=== PATIENT | male | born 1975 | race Caucasian/White ===

== ENCOUNTER 2019-04-13 14:49 | Inpatient (IN) ==
[2019-04-13] MEDS ORDERED: Isovue-370 500 ML BOTTLE IVP ONE (15:29)
--- NOTE | 2019-04-13 15:32 | Emergency Department Note ---
Disposition Clinical Impression: Abscess Cellulitis Qualifiers: Site of cellulitis: extremity Site of cellulitis of extremity: lower extremity Laterality: right Qualified Code(s): L03.115 - Cellulitis of right lower limb Disposition: Admitted As Inpatient Condition: Fair Time of Disposition: 00:35 General Adult HPI - General Chief complaint: ED Extremity Problem,Nontraumatic Stated complaint: Left upper thigh Abscess/ cellulitis Time Seen by Provider: 04/13/19 15:13 Source: patient Limitations: no limitations - History of Present Illness Pain Scale: 10 - Related Data Home Medications Medication Instructions Recorded Confirmed Ascorbic Acid [C-1000] 1,000 mg PO DAILY 04/13/19 04/13/19 Glucosamine/D3/Boswellia Shannon 2 each PO DAILY 04/13/19 04/13/19 [Osteo Bi-Flex Tablet] Losartan/Hydrochlorothiazide 1 each PO DAILY 04/13/19 04/13/19 [Losartan-Hctz 50-12.5 mg Tab] Meloxicam [Mobic] 15 mg PO DAILY PRN 04/13/19 04/13/19 Multivit-Min/Folic/Vit K/Lycop 1 each PO DAILY 04/13/19 04/13/19 [Men's Multivitamin Tablet] Allergies Allergy/AdvReac Type Severity Reaction Status Date / Time lisinopril AdvReac Cough Verified 04/13/19 15:37 Past Medical History - Past Medical History Medical history: Reports: arthritis, hypertension Psychiatric history: Reports: no psych history - Social History Smoking Status: Never smoker Alcohol use: Reports: occasionally Drug use: Reports: none Physical Exam - General Limitations: no limitations General appearance: alert, in no apparent distress Course Vital Signs Temperature 99.0 F 04/13/19 15:04 Pulse Rate 105 04/13/19 15:04 Respiratory Rate 20 04/13/19 15:04 Blood Pressure 149/75 04/13/19 15:04 O2 Sat by Pulse Oximetry 96 04/13/19 15:04 Temperature 99.1 F 04/13/19 23:01 Pulse Rate 95 04/13/19 23:01 Respiratory Rate 16 04/13/19 23:01 Blood Pressure 133/76 04/13/19 23:01 O2 Sat by Pulse Oximetry 95 04/13/19 23:01 Oxygen Delivery Oxygen Delivery Room Air Medical Decision Making - Lab Data Result diagrams: 04/13/19 15:51 04/13/19 15:51 Lab Results 04/13/19 04/13/19 04/13/19 Range/Units 15:51 15:51 15:51 WBC 9.1 (4.3-11.1) K/mcL RBC 4.37 (4.19-5.50) M/mcL Hgb 12.5 L (12.9-16.9) g/dL Hct 38.8 (37.5-50.1) % MCV 88.8 (83.0-100.0) fL MCH 28.6 (28.0-33.3) pg MCHC 32.2 (31.6-35.5) g/dL RDW 13.0 (11.5-14.5) % Plt Count 333 (140-400) K/mcL MPV 9.8 (9.4-12.4) fL Immature Gran % 0.5 (0-4) % Seg Neutrophils % 77.4 % Lymphocytes % 10.5 % Monocytes % 8.9 % Eosinophils % 2.3 % Basophils % 0.4 % Neutrophils # 7.1 (1.6-8.9) K/mcL Lymphocytes # 1.0 (0.6-4.6) K/mcL Monocytes # 0.8 (0.0-1.3) K/mcL Eosinophils # 0.2 (0.0-0.6) K/mcL Basophils # 0.0 (0.0-0.2) K/mcL PT 13.8 H (9.4-12.1) Seconds INR 1.2 APTT 29.3 (26.0-36.0) Seconds Sodium 136 (136-145) mEq/L Potassium 3.8 (3.5-5.1) mEq/L Chloride 101 (98-107) mEq/L Carbon Dioxide 26 (23-29) mEq/L BUN 14 (6-20) mg/dL Creatinine 0.58 L (0.70-1.30) mg/dL Est GFR ( Amer) > 60 (> 60) Est GFR (Non-Af Amer) > 60 (> 60) BUN/Creatinine Ratio 24 (6-26) Glucose 93 (70-105) mg/dL Calculated Osmolality 282 (280-300) Calcium 9.4 (8.6-10.3) mg/dL Attestation Statement - Attestation Attestation: I reviewed the residents documentation and agree with the residents assessment and plan of care. I have personally had face to face time with the patient. (Brief History, Brief Exam, and MDM) I personally supervised and was present for the fischer/critical portions of the following procedures completed by the resident: (add procedures performed here). [id number] time provided Patient has right knee swelling with surrounding cellulitis. There is granulomatous tissue on exam. Initial injury occurred 2 years ago as a work r elated issue. CT with IV contrast of his right lower extremity ordered to evaluate for abscess
--- NOTE | 2019-04-13 15:33 | Emergency Department Note ---
Disposition Clinical Impression: Abscess Cellulitis Qualifiers: Site of cellulitis: extremity Site of cellulitis of extremity: lower extremity Laterality: right Qualified Code(s): L03.115 - Cellulitis of right lower limb Disposition: Admitted As Inpatient Condition: Fair Forms: ED Satisfaction Letter Time of Disposition: 18:33 General Adult HPI - General Chief complaint: ED Extremity Problem,Nontraumatic Stated complaint: Left upper thigh Abscess/ cellulitis Time Seen by Provider: 04/13/19 15:13 Source: patient Mode of arrival: ambulatory Limitations: no limitations Nursing Notes Reviewed: Yes Vital Signs Reviewed: Yes - History of Present Illness HPI Narrative: Patient is a 44-year-old male that presents emergency department due to concern for swelling fluctuant mass on the right lateral aspect of his right lower extremity. Patient states that he had an initial injury approximately 2 years ago in May 2017. Patient states is been followed with occupational health for the injury. Patient states he has not had any new injuries to the leg since that time. Patient states that on April 06. Again had increased swelling, erythema and pain to the right thigh. Patient states that he has also had increased sloughing of skin overlying the fluctuant area. Patient states it is become extremely tender superior to the fluctuant mass. Patient states that he has not had any fevers, nausea, vomiting or diarrhea. Patient states he otherwise feels fine. Patient states that he has been able to work up until April 06 however now with having to stand repetitively as job is become or painful and difficult to do his job. Pain Scale: 10 - Related Data Allergies Allergy/AdvReac Type Severity Reaction Status Date / Time lisinopril AdvReac Cough Verified 04/13/19 15:37 All systems ED: reviewed and negative except as stated. Constitutional: Denies: fever Cardiovascular: Denies: chest pain Respiratory: Denies: dyspnea Gastrointestinal: Denies: abdominal pain Musculoskeletal: Reports: other (Right thigh pain, erythema, and swelling) Neurological: Denies: weakness, numbness, paresthesias Past Medical History - Past Medical History Medical history: Reports: arthritis, hypertension Psychiatric history: Reports: no psych history - Social History Smoking Status: Never smoker Alcohol use: Reports: occasionally Drug use: Reports: none Physical Exam - General Limitations: no limitations General appearance: alert, in no apparent distress - Head Head exam: atraumatic, normocephalic - Eye Eye exam: Present: normal appearance, EOMI - Neck Neck exam: Present: normal inspection, full ROM, trachea midline - Respiratory Respiratory exam: Present: normal lung sounds bilaterally. Absent: respiratory distress, wheezes - Cardiovascular Cardiovascular exam: Present: regular rate, normal rhythm, normal heart sounds, +S1, +S2 - Abdominal Exam Abdominal exam: Present: soft, Non-Tender, normal bowel sounds - Extremities Exam Extremities exam: Present: other (Patient has approximately a 10 x 10 fluctuant area on his lateral aspect of his right thigh. There is surrounding induration and erythema.) - Neurological Exam Neurological exam: Present: alert, oriented X3 - Psychiatric Psychiatric exam: Present: normal affect, normal mood - Skin Skin exam: Present: erythema, other (Skin is sloughing off the fluctuant mass on the anterior lateral right thigh.) Course Vital Signs Temperature 99.0 F 04/13/19 15:04 Pulse Rate 105 04/13/19 15:04 Respiratory Rate 20 04/13/19 15:04 Blood Pressure 149/75 04/13/19 15:04 O2 Sat by Pulse Oximetry 96 04/13/19 15:04 Temperature 99.0 F 04/13/19 15:04 Pulse Rate 105 04/13/19 15:04 Respiratory Rate 20 04/13/19 15:04 Blood Pressure 149/75 04/13/19 15:04 O2 Sat by Pulse Oximetry 96 04/13/19 15:04 Oxygen Delivery Oxygen Delivery Room Air Medical Decision Making - [facility] Narrative Medical decision making narrative: Due the patient is not emergency Department with reports of increased swelling and fluctuance to the right thigh we will obtain basic laboratory testing as well as a CT scan with IV contrast of the patient's right lower extremity. Patient's laboratory testing is relatively unremarkable. Patient does have signs of an abscess on CT scan. There is a fluid collection of 13.1 x 9.9 x 13.1 cm. Patient is otherwise nontoxic appearing, afebrile and states he has no other symptoms at this time. I did call and speak with the on-call acute-care surgeon Dr. Richardson who agreed to see the patient in consult. He did ask that a ultrasound be ordered. This was done and the order was placed [facility]. Patient was started on clindamycin here in the emergency department. I called and spoke the admitting hospitalist Dr. Rivas and he is accepted the patient to their service. Patient be admitted to the hospital at this time for further evaluation and management. - Medical Records Medical records reviewed: Yes I reviewed the patient's medical records. - Lab Data Lab results reviewed: Yes I reviewed the patient's lab results. Result diagrams: 04/13/19 15:51 04/13/19 15:51 Lab Results 04/13/19 04/13/19 04/13/19 Range/Units 15:51 15:51 15:51 WBC 9.1 (4.3-11.1) K/mcL RBC 4.37 (4.19-5.50) M/mcL Hgb 12.5 L (12.9-16.9) g/dL Hct 38.8 (37.5-50.1) % MCV 88.8 (83.0-100.0) fL MCH 28.6 (28.0-33.3) pg MCHC 32.2 (31.6-35.5) g/dL RDW 13.0 (11.5-14.5) % Plt Count 333 (140-400) K/mcL MPV 9.8 (9.4-12.4) fL Immature Gran % 0.5 (0-4) % Seg Neutrophils % 77.4 % Lymphocytes % 10.5 % Monocytes % 8.9 % Eosinophils % 2.3 % Basophils % 0.4 % Neutrophils # 7.1 (1.6-8.9) K/mcL Lymphocytes # 1.0 (0.6-4.6) K/mcL Monocytes # 0.8 (0.0-1.3) K/mcL Eosinophils # 0.2 (0.0-0.6) K/mcL Basophils # 0.0 (0.0-0.2) K/mcL PT 13.8 H (9.4-12.1) Seconds INR 1.2 APTT 29.3 (26.0-36.0) Seconds Sodium 136 (136-145) mEq/L Potassium 3.8 (3.5-5.1) mEq/L Chloride 101 (98-107) mEq/L Carbon Dioxide 26 (23-29) mEq/L BUN 14 (6-20) mg/dL Creatinine 0.58 L (0.70-1.30) mg/dL Est GFR ( Amer) > 60 (> 60) Est GFR (Non-Af Amer) > 60 (> 60) BUN/Creatinine Ratio 24 (6-26) Glucose 93 (70-105) mg/dL Calculated Osmolality 282 (280-300) Calcium 9.4 (8.6-10.3) mg/dL - Radiology Data Radiology results reviewed: Yes I reviewed the patient's radiology results. Lower Extremity CT 04/13/19 15:29 IMPRESSION: Thick-walled complex multiloculated collection in the anterior subcutaneous fat of the right thigh measuring 13.1 x 9.9 x 13.1 cm in size. Differential includes abscess, superinfected hematoma or hematoma from prior trauma. Mild infiltration of the subcutaneous fat and mild skin thickening of the right thigh may represent cellulitis in the proper clinical setting. No deep soft tissue infection. No acute bone or joint abnormality. Moderate to severe tricompartmental osteoarthritis of the right knee. D/ / 04/13/2019 18:02:53 Rich Sylvester MD / paz Interpreting Provider: Rich Sylvester MD
[2019-04-13 16:20] LABS: Basophils % 0.4 %; Eosinophils # 0.2 K/mcL (0.0-0.6); Eosinophils % 2.3 %; Hematocrit 38.8 % (37.5-50.1); Hemoglobin 12.5 g/dL (12.9-16.9); Immature Granulocytes % 0.5 % (0-4); Lymphocytes % 10.5 %; Mean Corpuscular HGB Conc 32.2 g/dL (31.6-35.5); Mean Corpuscular Hemoglobin 28.6 pg (28.0-33.3); Mean Corpuscular Volume 88.8 fL (83.0-100.0); Mean Platelet Volume 9.8 fL (9.4-12.4); Monocytes # 0.8 K/mcL (0.0-1.3); Monocytes % 8.9 %; Neutrophils # 7.1 K/mcL (1.6-8.9); Platelet Count 333 K/mcL (140-400); Red Blood Count 4.37 M/mcL (4.19-5.50); Segmented Neutrophils % 77.4 %; White Blood Count 9.1 K/mcL (4.3-11.1)
[2019-04-13 16:31] LABS: INR 1.2; Prothrombin Time 13.8 Seconds (9.4-12.1)
[2019-04-13 16:32] LABS: Activated Partial Thrombo Time 29.3 Seconds (26.0-36.0)
[2019-04-13 16:39] LABS: BUN/Creatinine Ratio 24 (6-26); Blood Urea Nitrogen 14 mg/dL (6-20); Calcium 9.4 mg/dL (8.6-10.3); Carbon Dioxide 26 mEq/L (23-29); Chloride 101 mEq/L (98-107); Glucose 93 mg/dL (70-105); Osmolality,Calculated 282 (280-300); Potassium 3.8 mEq/L (3.5-5.1); Sodium 136 mEq/L (136-145); eGFR For African Americans > 60 (> 60); eGFR For Non-African Americans > 60 (> 60)
[2019-04-13] MEDS ORDERED: Clindamycin 600 MG/50 ML 600 MG/50 ML IV.SOLN IVPB ONE (18:05)
--- NOTE | 2019-04-13 19:41 | Acute Care Surgery H&P ---
Date of Encounter: 04/13/19 Time of Encounter: 19:00 Assessment and Plan (1) Morbid obesity with BMI of 50.0-59.9, adult Current Visit: Yes Status: Acute The assessment and plan as outlined above was discussed with the patient and/or family members who expressed understanding and agreement. All questions were answered. The patient has profound morbid obesity which may complicate his general anesthetic and airway management. The profound morbid obesity is also resulted in bilateral lower extremity lymphedema and bilateral lower extremity chronic ve nous hypertension. (2) Lymphocele Current Visit: Yes Status: Acute The assessment and plan as outlined above was discussed with the patient and/or family members who expressed understanding and agreement. All questions were answered. The lymphocele on the left lower extremity has become secondarily infected and associated with cellulitis. The patient will be treated overnight with IV antibiotics directed at skin clover followed by incision and drainage of the lymphocele. I discussed risks and benefits with him and his care will be discussed on acute care surgery rounds tomorrow morning History of Present Illness Chief complaint: Right thigh abscess HPI: Mr. Maloney is a 44 year old male Who sustained a traumatic injury 2 years ago. Since that time he has had a small swelling on the anterior aspect of his right thigh. This has progressively enlarged. He has had this drained on one occasion. The mass now measures 14 cm x 10 cm and has resulted in the overlying skin starting to necrosis. The skin is also demonstrates transudate lymphatic fluid. The patient has surrounding erythema and the mass is becoming exquisitely painful. The patient underwent CAT scan evaluation in the emergency department. I personally reviewed the CT. The infected lymphocele occupies the subcutaneous tissue and does not go below the muscular fascia of the thigh. It is unclear if there is a discrete vascular pedicle to the wall of the chronic lymphocele. The patient's condition is complicated by profound morbid obesity with body mass index of 50 and port appears to be undiagnosed bilateral lower extremity lymphedema as well as chronic venous insufficiency with hemosiderin deposition and dermatosclerosis without ulceration Past Med Surg Social Fam HX - Past Medical History Medical history: arthritis, hypertension Psychiatric history: no psych history - Past Surgical History Additional surgical history: dental surgery - Social History Smoking Status: Never smoker Alcohol use: occasionally Drug use: none Medications and Allergies Allergy/AdvReac Type Severity Reaction Status Date / Time lisinopril AdvReac Cough Verified 04/13/19 15:37 Review of Systems All systems PM: The remainder of the systems were reviewed and are negative General Surgery Exam Initial Vital Signs Temp Pulse Resp BP Pulse Ox 99.0 F 105 20 149/75 96 04/13/19 15:04 04/13/19 15:04 04/13/19 15:04 04/13/19 15:04 04/13/19 15:04 - General physical appearance well developed, well nourished, moderate pain, obese (Profound morbid obesity) - Neck no masses, no bruits, trachea midline, no lymphadectomy, other (Short thick neck with redundant tissue) - Respiratory normal expansion, normal respiratory effort, clear to percussion, clear to auscultation - Cardiovascular Cardiovascular exam: Present: RRR, no murmurs/rubs/gallops - Abdomen Abdomen general surgery: Present: bowel sounds present (Profound morbid obesity), soft, non tender - Integumentary Integumentary general surgery: Present: warm and dry, no abnormal pigmentation - Neurologic Present: CN 2-12 grossly intact, normal coordination, normal sensation - Psychiatric Psychiatric general surgery: Present: appropriate, oriented to person, oriented to place, oriented to time, speech is normal, memory intact - Additional Findings 15 cm soft fluctuant mass with surrounding erythema and overlying necrotic epidermis. There is surrounding erythema consistent with cellulitis Results - Labs 04/13/19 15:51 04/13/19 15:51 Abnormal lab results Hgb 12.5 g/dL (12.9-16.9) L 04/13/19 15:51 PT 13.8 Seconds (9.4-12.1) H 04/13/19 15:51 Creatinine 0.58 mg/dL (0.70-1.30) L 04/13/19 15:51 Diabetes panel 04/13/19 Range/Units 15:51 Sodium 136 (136-145) mEq/L Potassium 3.8 (3.5-5.1) mEq/L Chloride 101 (98-107) mEq/L Carbon Dioxide 26 (23-29) mEq/L BUN 14 (6-20) mg/dL Creatinine 0.58 L (0.70-1.30) mg/dL Glucose 93 (70-105) mg/dL Calcium 9.4 (8.6-10.3) mg/dL Calcium panel 04/13/19 Range/Units 15:51 Calcium 9.4 (8.6-10.3) mg/dL Pituitary panel 04/13/19 Range/Units 15:51 Sodium 136 (136-145) mEq/L Potassium 3.8 (3.5-5.1) mEq/L Chloride 101 (98-107) mEq/L Carbon Dioxide 26 (23-29) mEq/L BUN 14 (6-20) mg/dL Creatinine 0.58 L (0.70-1.30) mg/dL Glucose 93 (70-105) mg/dL Calcium 9.4 (8.6-10.3) mg/dL Adrenal panel 04/13/19 Range/Units 15:51 Sodium 136 (136-145) mEq/L Potassium 3.8 (3.5-5.1) mEq/L Chloride 101 (98-107) mEq/L Carbon Dioxide 26 (23-29) mEq/L BUN 14 (6-20) mg/dL Creatinine 0.58 L (0.70-1.30) mg/dL Glucose 93 (70-105) mg/dL Calcium 9.4 (8.6-10.3) mg/dL All other labs normal. - Imaging Additional studies: I personally reviewed the CAT scan of the extremities. The patient has a 14 cm x 10 cm complex mass in the anterior aspect of the right thigh. There is surrounding tissue edema consistent with cellulitis
[2019-04-13] MEDS: 0.9 % Sodium Chloride 1,000 ML IVC SCH (23:45)
[2019-04-14] MEDS: *HR* Heparin 5,000 UNIT/ML VIAL SQ SCH ×2 (05:00→19:55)
[2019-04-14 06:14] LABS: Hematocrit 35.6 % (37.5-50.1); Hemoglobin 11.5 g/dL (12.9-16.9); Mean Corpuscular HGB Conc 32.3 g/dL (31.6-35.5); Mean Corpuscular Hemoglobin 28.7 pg (28.0-33.3); Mean Corpuscular Volume 88.8 fL (83.0-100.0); Mean Platelet Volume 9.7 fL (9.4-12.4); Platelet Count 329 K/mcL (140-400); Red Blood Count 4.01 M/mcL (4.19-5.50); Red Cell Distribution Width 13.2 % (11.5-14.5); White Blood Count 8.9 K/mcL (4.3-11.1)
[2019-04-14 06:39] LABS: BUN/Creatinine Ratio 20 (6-26); Blood Urea Nitrogen 12 mg/dL (6-20); Calcium 9.4 mg/dL (8.6-10.3); Carbon Dioxide 26 mEq/L (23-29); Chloride 101 mEq/L (98-107); Glucose 93 mg/dL (70-105); Osmolality,Calculated 285 (280-300); Sodium 138 mEq/L (136-145); eGFR For African Americans > 60 (> 60); eGFR For Non-African Americans > 60 (> 60)
[2019-04-14] MEDS ORDERED: Ondansetron 4 MG/2 ML VIAL ONE (16:16)
[2019-04-14] MEDS ORDERED: *HR* Midazolam HCl 2 MG/2 ML VIAL ONE (16:16)
[2019-04-14] MEDS ORDERED: Dexamethasone 4 MG/ML VIAL ONE (16:16)
[2019-04-14] MEDS ORDERED: Lidocaine -MPF 2% 2 ML VIAL ONE (16:16)
[2019-04-14] MEDS ORDERED: *HR* Propofol 200 MG/20 ML VIAL IVP ONE ×2 (16:16→18:56)
[2019-04-14] MEDS ORDERED: *HR* FentaNYL (PF) 100 MCG/2 ML VIAL ONE (16:16)
[2019-04-14] MEDS ORDERED: *HR* Succinylcholine 200 MG/10 ML VIAL IVP ONE (16:18)
[2019-04-14] MEDS ORDERED: *HR* Rocuronium Bromide 50 MG/5 ML VIAL ONE (16:18)
[2019-04-14] MEDS ORDERED: Lidocaine HCL 4 ML Topical Solution (Laryng-O-Jet Kit Sterile Pak) TP ONE (16:22)
[2019-04-14] MEDS ORDERED: Propofol 500 MG/50 ML INFUS..BTL ONE (18:11)
--- NOTE | 2019-04-14 18:15 | Anesthesia Evaluation PreOp ---
Date of Encounter: 04/14/19 Time of Encounter: 18:10 - Past History Planned Operation: I & D Right Thigh Cardiac History: HTN Pulmonary History: Denies Any Significant HX, Snore Other Medical History: Denies Any Significant HX, Other (obesity BMI=51.5) Anesthesia History: No Prior Anesthetic Complications, Past Anesthesia Alcohol Use: occasionally Drug use: none Medications and Allergies Ascorbic Acid [C-1000] 1,000 mg PO DAILY 04/13/19 [History] Glucosamine/D3/Boswellia Shannon [Osteo Bi-Flex Tablet] 2 each PO DAILY 04/13/19 [History] Losartan/Hydrochlorothiazide [Losartan-Hctz 50-12.5 mg Tab] 1 each PO DAILY 04/13/19 [History] Meloxicam [Mobic] 15 mg PO DAILY PRN 04/13/19 [History] Multivit-Min/Folic/Vit K/Lycop [Men's Multivitamin Tablet] 1 each PO DAILY 04/13/19 [History] Allergy/AdvReac Type Severity Reaction Status Date / Time lisinopril AdvReac Cough Verified 04/13/19 15:37 - Meds/Allergy Pre-op Review Medications Reviewed: Yes Allergies Reviewed: Yes Beta Blockers on Current Med List: No Anesthesia Results - Labs 04/14/19 05:11 04/14/19 05:11 Anesthesia Exam Vital Signs/O2 Sat/Glucose, Most Recent Temp Pulse Resp BP Pulse Ox 99.4 F 87 16 150/85 96 04/14/19 15:22 04/14/19 15:22 04/14/19 15:22 04/14/19 15:22 04/14/19 15:22 Blood Glucose* 84 Height: 5'11''/1.8m Weight: 369 lbs/167.4 kg NPO (# of Hours): 8 Pain Scale: 5 Pain Scale Used: Numeric (1 - 10) - HEENT Pupil (Motor): EOMI Mallampati: III Teeth: Normal Oral Opening: Greater than 3 - UPPER LEATHER CUTTER LOC: Oriented UPPER LEATHER CUTTER Motor: Normal RUE, Normal LUE, Normal RLE, Normal LLE, Normal Face UPPER LEATHER CUTTER Sensory: Normal: RUE, LUE, RLE, LLE, Face - Cardiac Rhythm: Regular Murmur: None - Pulmonary Breath Sounds: bilateral Clear Respiratory Effort: Symmetrical Anesthesia Assess/Plan ASA Score: 3 Level of consciousness: Cooperative, Oriented, Tranquil Anesthetic Plan: MAC Monitoring Plan: Standard Monitors
[2019-04-14] MEDS: 0.9 % Sodium Chloride 1,000 ML IVC SCH ×2 (18:20→20:07)
[2019-04-14] MEDS ORDERED: *HR* FentaNYL (PF) 100 MCG/2 ML VIAL IVP ONE (20:17)
[2019-04-14] MEDS ORDERED: *HR* OxyCODONE Immed Rel 5 MG TABLET PO PRN (20:18)
[2019-04-15] MEDS: *HR* Heparin 5,000 UNIT/ML VIAL SQ SCH ×2 (05:21→16:27)
[2019-04-15 05:57] LABS: Hematocrit 35.9 % (37.5-50.1); Hemoglobin 11.5 g/dL (12.9-16.9); Mean Corpuscular Hemoglobin 28.9 pg (28.0-33.3); Mean Corpuscular Volume 90.2 fL (83.0-100.0); Mean Platelet Volume 9.5 fL (9.4-12.4); Platelet Count 349 K/mcL (140-400); Red Blood Count 3.98 M/mcL (4.19-5.50); Red Cell Distribution Width 12.7 % (11.5-14.5); White Blood Count 6.7 K/mcL (4.3-11.1)
[2019-04-15 06:19] LABS: BUN/Creatinine Ratio 21 (6-26); Blood Urea Nitrogen 12 mg/dL (6-20); Calcium 9.2 mg/dL (8.6-10.3); Carbon Dioxide 26 mEq/L (23-29); Chloride 103 mEq/L (98-107); Glucose 95 mg/dL (70-105); Osmolality,Calculated 286 (280-300); Sodium 138 mEq/L (136-145); eGFR For African Americans > 60 (> 60); eGFR For Non-African Americans > 60 (> 60)
[2019-04-15] MEDS: Losartan/HCTZ 50-12.5 TABLET PO SCH (09:41)
[2019-04-15] MEDS ORDERED: Lidocaine Jelly 11 ml Syringe TP STA (09:48)
--- NOTE | 2019-04-15 10:12 | Discharge Summary ---
<Joana Mason - Last Filed: 04/15/19 15:26> Orders not resulted at time of discharge: Pending orders 04/14/19 18:58 Fungal Culture [MYC] Routine 04/14/19 19:26 Surgical Pathology [PTH] Routine Date of Encounter: 04/15/19 Time of Encounter: 10:12 - Discharge Diagnosis (1) Lymphocele Priority: Primary Status: Acute (2) Morbid obesity with BMI of 50.0-59.9, adult Priority: Secondary Status: Chronic (3) Cellulitis Priority: Primary Status: Acute Qualifiers: Site of cellulitis: extremity Site of cellulitis of extremity: lower extremity Laterality: right Qualified Code(s): L03.115 - Cellulitis of right lower limb General Surgery Exam Initial Vital Signs Temp Pulse Resp BP Pulse Ox 99.0 F 105 20 149/75 96 04/13/19 15:04 04/13/19 15:04 04/13/19 15:04 04/13/19 15:04 04/13/19 15:04 - General physical appearance no distress, moderate pain, obese - ENT atraumatic, normocephalic - Neck trachea midline - Respiratory normal expansion, normal respiratory effort - Cardiovascular Cardiovascular exam: Present: RRR - Abdomen Abdomen general surgery: Present: bowel sounds present, soft, non tender - Integumentary Integumentary general surgery: Present: warm and dry, other (Right surgical site is aprox 8x10cm, surround celluitis is improved. Wound beds beefy red, serous drainage. Wound vac is placed to the area. No leak noted.) - Neurologic Present: normal sensation - Psychiatric Psychiatric general surgery: Present: A&Ox3 - Hospital Course Hospital course: Mr. Maloney is a 44 year old male - Time Spent with Patient Total time spent providing and/or coordinating discharge services: - Discharge Medications Prescriptions: New Docusate Sodium [Colace] 100 mg PO BID PRN #30 capsule PRN Reason: Contstipation Lidocaine Jelly 11ml [GLYDO 11ml] 2 appl TP 3XW 90 Days #36 jel.pf.david Cephalexin [Keflex] 250 mg PO Q6H 5 Days #20 capsule OxyCODONE Immed Rel [Roxicodone 5 MG] 5 mg PO Q6HR PRN 7 Days #28 tablet PRN Reason: Severe Pain Transparent Dressing [Tegaderm] 1 each TP 3XW 90 Days #36 bandage Continued Multivit-Min/Folic/Vit K/Lycop [Men's Multivitamin Tablet] 1 each PO DAILY Meloxicam [Mobic] 15 mg PO DAILY PRN PRN Reason: Pain Glucosamine/D3/Boswellia Shannon [Osteo Bi-Flex Tablet] 2 each PO DAILY Losartan/Hydrochlorothiazide [Losartan-Hctz 50-12.5 mg Tab] 1 each PO DAILY Ascorbic Acid [C-1000] 1,000 mg PO DAILY Home Medications: Ascorbic Acid [C-1000] 1,000 mg PO DAILY 04/13/19 [History] Glucosamine/D3/Boswellia Shannon [Osteo Bi-Flex Tablet] 2 each PO DAILY 04/13/19 [History] Losartan/Hydrochlorothiazide [Losartan-Hctz 50-12.5 mg Tab] 1 each PO DAILY 04/13/19 [History] Meloxicam [Mobic] 15 mg PO DAILY PRN 04/13/19 [History] Multivit-Min/Folic/Vit K/Lycop [Men's Multivitamin Tablet] 1 each PO DAILY 04/13/19 [History] Cephalexin [Keflex] 250 mg PO Q6H 5 Days #20 capsule 04/15/19 [Rx] Docusate Sodium [Colace] 100 mg PO BID PRN #30 capsule 04/15/19 [Rx] Lidocaine Jelly 11ml [GLYDO 11ml] 2 appl TP 3XW 90 Days #36 jel.pf.david 04/15/19 [Rx] OxyCODONE Immed Rel [Roxicodone 5 MG] 5 mg PO Q6HR PRN 7 Days #28 tablet 04/15/19 [Rx] Transparent Dressing [Tegaderm] 1 each TP 3XW 90 Days #36 bandage 04/15/19 [Rx] Allergies/Adverse Reactions: Allergy/AdvReac Type Severity Reaction Status Date / Time lisinopril AdvReac Cough Verified 04/13/19 15:37 Date of admission: 04/13/19 19:57 Primary care physician: Rox Taveras CNP Consults: 04/13/19 18:11 Consult to Surgery [CONS] Stat Consulting Provider: Acute Care Surgery Reason for Consult: Possible abscess. Time Notified: 18:12 Call Completed: Yes 04/15/19 09:52 Consult to Telephonic Case Manager [CONS] Stat Reason for SW Consult: [facility] for wound vac changes Q T//S Discharging clinician: Layo Proctor Anticipated date of discharge: 04/15/19 Labs on day of discharge: Labs from last 24 hours 04/15/19 04/15/19 04/14/19 04:59 04:59 11:13 WBC 6.7 RBC 3.98 L Hgb 11.5 L Hct 35.9 L MCV 90.2 MCH 28.9 MCHC 32.0 RDW 12.7 Plt Count 349 MPV 9.5 Sodium 138 Potassium 4.0 Chloride 103 Carbon Dioxide 26 BUN 12 Creatinine 0.57 L Est GFR ( Amer) > 60 Est GFR (Non-Af Amer) > 60 BUN/Creatinine Ratio 21 Glucose 95 POC Glucose 84 Calculated Osmolality 286 Calcium 9.2 04/14/19 04:53 WBC RBC Hgb Hct MCV MCH MCHC RDW Plt Count MPV Sodium Potassium Chloride Carbon Dioxide BUN Creatinine Est GFR ( Amer) Est GFR (Non-Af Amer) BUN/Creatinine Ratio Glucose POC Glucose 96 Calculated Osmolality Calcium - Impressions ITS Impressions Lower Extremity CT 04/13/19 15:29 IMPRESSION: Thick-walled complex multiloculated collection in the anterior subcutaneous fat of the right thigh measuring 13.1 x 9.9 x 13.1 cm in size. Differential includes abscess, superinfected hematoma or hematoma from prior trauma. Mild infiltration of the subcutaneous fat and mild skin thickening of the right thigh may represent cellulitis in the proper clinical setting. No deep soft tissue infection. No acute bone or joint abnormality. Moderate to severe tricompartmental osteoarthritis of the right knee. D/ / 04/13/2019 18:02:53 Rich Sylvester MD / [email or web address] Interpreting Provider: Rich Sylvester MD - Patient Status Disposition: Home Health Service Condition: Fair Functional capacity at discharge: independent ambulation Overall status at discharge: patient is progressing back to baseline - Discharge Instructions Instructions: Narcotic Pain Management (GEN), Weight Management (GEN), Obesity (GEN), Negative Pressure Wound Therapy (DC) Follow Up With: Layo Proctor MD [Non-Partnered Physician] - 05/04/19 1:00 pm (IN WOUND CARE 2-weeks) Rox Taveras CNP [Primary Care Provider] - Additional Instructions: Take Tylenol every 6 hours if needed for pain. If this does not relieve your discomfort, you can take the as needed Oxycodone; however, the Oxycodone should be reserved for severe pain and 1 hour prior to wound vac changes. Home health care will change your wound vac three times per week. If you have an appointment in wound care, bring one canister, dressing change, and lidocaine jelly with you to your appointment. Take your antibiotics as directed. Do not stop them without talking to your provider. You can apply and ice to your leg 20 minutes every hour that you are awake for discomfort. Walk around your house or outside several times per day. - Diet and Activity Activity: increase activity as tolerated Diet: advance to your usual diet <Layo Proctor - Last Filed: 04/16/19 07:37> Orders not resulted at time of discharge: Pending orders 04/14/19 19:19 Culture,Anaerobic [RM] Routine Culture,Anaerobic [RM] Routine Culture,Tissue(Biopsy),w Gr St [RM] Routine Culture,Wound,with Gram Stain [RM] Routine Fungal Culture [MYC] Routine 04/14/19 19:26 Surgical Pathology [PTH] Routine Date of Encounter: 04/16/19 General Surgery Exam Initial Vital Signs Temp Pulse Resp BP Pulse Ox 99.0 F 105 20 149/75 96 04/13/19 15:04 04/13/19 15:04 04/13/19 15:04 04/13/19 15:04 04/13/19 15:04 - Hospital Course Hospital course: Mr. Maloney is a 44 year old male - Time Spent with Patient Total time spent providing and/or coordinating discharge services: Date of admission: 04/13/19 19:57 Primary care physician: Rox Taveras CNP Consults: 04/13/19 18:11 Consult to Surgery [CONS] Stat Consulting Provider: Acute Care Surgery Reason for Consult: Possible abscess. Time Notified: 18:12 Call Completed: Yes 04/15/19 09:52 Consult to Telephonic Case Manager [CONS] Stat Reason for SW Consult: C for wound vac changes Q T/TH/S Labs on day of discharge: Labs from last 24 hours 04/16/19 04/16/19 03:59 03:59 WBC 6.5 RBC 4.26 Hgb 12.4 L Hct 38.0 MCV 89.2 MCH 29.1 MCHC 32.6 RDW 12.8 Plt Count 368 MPV 9.2 L Sodium 136 Potassium 3.8 Chloride 101 Carbon Dioxide 27 BUN 13 Creatinine 0.64 L Est GFR ( Amer) > 60 Est GFR (Non-Af Amer) > 60 BUN/Creatinine Ratio 20 Glucose 101 Calculated Osmolality 282 Calcium 9.1 Preliminary micro results at discharge 04/14/19 19:19 Wound Culture - Preliminary Right Leg 04/14/19 19:19 Anaerobic Culture - Preliminary Right Leg Culture is incubating. - Impressions ITS Impressions Lower Extremity CT 04/13/19 15:29 IMPRESSION: Thick-walled complex multiloculated collection in the anterior subcutaneous fat of the right thigh measuring 13.1 x 9.9 x 13.1 cm in size. Differential includes abscess, superinfected hematoma or hematoma from prior trauma. Mild infiltration of the subcutaneous fat and mild skin thickening of the right thigh may represent cellulitis in the proper clinical setting. No deep soft tissue infection. No acute bone or joint abnormality. Moderate to severe tricompartmental osteoarthritis of the right knee. D/ / 04/13/2019 18:02:53 Rich Sylvester MD / [email or web address] Interpreting Provider: Rich Sylvester MD - Attending Attestation patient seen and examined. i have reviewed all pertinent information in regard to this case. i have discussed the case in detail with the SPORTS PHOTOGRAPHER; i agree with the above assessment and plan.
--- NOTE | 2019-04-15 11:14 | Operative Note ---
Date of procedure: 04/14/19 Pre-op diagnosis: right thigh lymphocele Post-op diagnosis: same Procedure: incision and drainage of right thigh lymphocele excisional debridement of right thigh lymphocele cavity Anesthesia: MAC Local Anesthetics: 0.5% Sensorcaine HCL SubQ (cc) Surgeon: Layo Proctor Was there an family medicine physician assistant present: No Estimated blood loss (cc): 5 Specimen: aerobic/anaerobic cultures of fluid and cavity wall; path of cavity wall Condition: stable Disposition: floor Procedure in Detail: patient was brought into the operating room suite. placed in supine position. mechanical dvt prophylaxis was placed. preoperative antibitocis were given. MAC anesthesia was started. he was prepped and draped in the usual fashion. A timeout was held identifying correct pathology procedure and physician; I created an incision onto the skin with immediate evacuation of light yellow fluid. I suctioned the fluid and took aerobic and anaerobic cultures. After evacuating the fluid I noted the wall of the cavity. I took samples to send for both pathology and culture. The debridement was down to the subcutaneous tissue; Of note the wall of the cavity was smooth; no identifiable vascular pedicle nor source of fluid secretion. the cavity itself measured about 8cm x 10cm in size (80sq cm); I then controlled for bleeding, irrigated with saline, and packed with a wet to dry dressing. The patient tolerated the procedure well and was escorted to the floor in stable condition.
--- NOTE | 2019-04-15 13:10 | Physician Discharge Referral ---
Home Health/Hosp Referral Info Transfer to: Home Health Attending Provider: Dr Layo Proctor Provider in Charge Post Discharge: Other (same) - Diagnosis (1) Lymphocele Priority: Primary Status: Acute (2) Morbid obesity with BMI of 50.0-59.9, adult Priority: Secondary Status: Chronic - Respiratory Orders Smoking Cessation: Smoking cessation has been advised. For more information, call the [place] Tobacco Quit Line at 2-170-EKPP-NOW. - Dressing/Wound Care Site: Right lateral thigh Type of Dressing/Treatments w/Frequency: Wound Vac changes Q M/W/F or T//S: Remove dressing and foam. Shower with antibacterial soap. Instill 11-22 ml of lidocaine jelly into the wound. Cover with a tegaderm. Allow to set for 10-[address] black foam in the wound bed; no bridging needed, maintain -125 mmhg suction continuous. - Diet/Nutrition Diet/Nutrition: List: Recommended weight loss. Encourage healthy diet and exercise. - Activity Activity Orders: Up ad bren - Services Needed Following services are medically necessary services: Nursing Other Treatments: Take Tylenol every 6 hours if needed for pain. If this does not relieve your discomfort, you can take the as needed Oxycodone; however, the Oxycodone should be reserved for severe pain and 1 hour prior to wound vac changes. Home health care will change your wound vac three times per week. If you have an appointment in wound care, bring one canister, dressing change, and lidocaine jelly with you to your appointment. Take your antibiotics as directed. Do not stop them without talking to your provider. You can apply and ice to your leg 20 minutes every hour that you are awake for discomfort. Walk around your house or outside several times per day. - Transfer Medications Prescriptions: Docusate Sodium [Colace] 100 mg PO BID PRN #30 capsule PRN Reason: Contstipation Lidocaine Jelly 11ml [GLYDO 11ml] 2 appl TP 3XW 90 Days #36 jel.pf.david Cephalexin [Keflex] 250 mg PO Q6H 5 Days #20 capsule OxyCODONE Immed Rel [Roxicodone 5 MG] 5 mg PO Q6HR PRN 7 Days #28 tablet PRN Reason: Severe Pain Home Medications: Ascorbic Acid [C-1000] 1,000 mg PO DAILY 04/13/19 [History] Glucosamine/D3/Boswellia Shannon [Osteo Bi-Flex Tablet] 2 each PO DAILY 04/13/19 [History] Losartan/Hydrochlorothiazide [Losartan-Hctz 50-12.5 mg Tab] 1 each PO DAILY 04/13/19 [History] Meloxicam [Mobic] 15 mg PO DAILY PRN 04/13/19 [History] Multivit-Min/Folic/Vit K/Lycop [Men's Multivitamin Tablet] 1 each PO DAILY 04/13/19 [History] Cephalexin [Keflex] 250 mg PO Q6H 5 Days #20 capsule 04/15/19 [Rx] Docusate Sodium [Colace] 100 mg PO BID PRN #30 capsule 04/15/19 [Rx] Lidocaine Jelly 11ml [GLYDO 11ml] 2 appl TP 3XW 90 Days #36 jel.pf.david 04/15/19 [Rx] OxyCODONE Immed Rel [Roxicodone 5 MG] 5 mg PO Q6HR PRN 7 Days #28 tablet 04/15/19 [Rx] Allergies/Adverse Reactions: Allergy/AdvReac Type Severity Reaction Status Date / Time lisinopril AdvReac Cough Verified 04/13/19 15:37 Certification: Further, I certify that my clinical findings support that this patient is homebound (i.e. absences from home require considerable and taxing effort and are for medical reasons or latter day services or infrequently or short duration when for other reasons) because: Homebound Reason: Leaving home requires considerable and taxing effort due to condition Attestation: My signature below is to certify that this patient is under my care and that I, or nurse practitioner, or a physician's training and development assistant working with me, has a [id number] encounter with this patient.
[2019-04-15] MEDS: cephALEXin 250 MG CAPSULE PO SCH ×3 (14:29→20:15)
--- NOTE | 2019-04-15 14:43 | Event Note ---
Date of Encounter: 04/15/19 Time of Encounter: 14:40 patient seen and examined; As an addition, the patient also has an associated erythema, warmth, and tenderness to his lesion, concerning for an associated cellulitis. The same can be confirmed on CT. All three components are present, although less so after surgery. His disease caused pressure and subsequent inflammatory response due to the size causing cellulitis. Although less than before surgery, he should still be treated for his cellulitis to ensure complete resolution, which is why I continued IV abx post op.
[2019-04-16 04:24] LABS: Hemoglobin 12.4 g/dL (12.9-16.9); Mean Corpuscular HGB Conc 32.6 g/dL (31.6-35.5); Mean Corpuscular Hemoglobin 29.1 pg (28.0-33.3); Mean Corpuscular Volume 89.2 fL (83.0-100.0); Mean Platelet Volume 9.2 fL (9.4-12.4); Platelet Count 368 K/mcL (140-400); Red Blood Count 4.26 M/mcL (4.19-5.50); Red Cell Distribution Width 12.8 % (11.5-14.5); White Blood Count 6.5 K/mcL (4.3-11.1)
[2019-04-16 04:44] LABS: BUN/Creatinine Ratio 20 (6-26); Blood Urea Nitrogen 13 mg/dL (6-20); Calcium 9.1 mg/dL (8.6-10.3); Carbon Dioxide 27 mEq/L (23-29); Chloride 101 mEq/L (98-107); Glucose 101 mg/dL (70-105); Osmolality,Calculated 282 (280-300); Potassium 3.8 mEq/L (3.5-5.1); Sodium 136 mEq/L (136-145); eGFR For African Americans > 60 (> 60); eGFR For Non-African Americans > 60 (> 60)
[2019-04-16] MEDS: *HR* Heparin 5,000 UNIT/ML VIAL SQ SCH (05:11)
[2019-04-16] MEDS: 0.9 % Sodium Chloride 1,000 ML IVC SCH (07:49)
[2019-04-16] MEDS: Losartan/HCTZ 50-12.5 TABLET PO SCH (08:15)
[2019-04-16] MEDS: cephALEXin 250 MG CAPSULE PO SCH ×2 (08:15→13:16)
[2019-04-16 11:36] VITALS: BP 127/83
[2019-04-16] MEDS ORDERED: *HR* OxyCODONE/APAP 7.5/325 TABLET PO STA (12:25)
--- NOTE | 2019-04-16 12:37 | AcuteCareSurgery Progress Note ---
<MarlonJoana Amara - Last Filed: 04/16/19 12:34> Date of Encounter: 04/15/19 Time of Encounter: 16:00 - Assessment and Plan (1) Lymphocele Status: Acute Date of procedure: 04/14/19 Pre-op diagnosis: right thigh lymphocele Post-op diagnosis: same Procedure: incision and drainage of right thigh lymphocele excisional debridement of right thigh lymphocele cavity Anesthesia: MAC Local Anesthetics: 0.5% Sensorcaine HCL SubQ (cc) Surgeon: Layo Proctor POD #1 as above. Surrounding cellulitis has significantly improved. The wound cavity remains the same size as per operative report 8 cm x 10 cm (80 cm) in the wound beds are beefy red. Wound VAC is applied and no leak is noted. We will continue IV antibiotics. We will continue discharge planning pending [facility] approval and patient needs. Plan: Continue supportive care and discomfort management Continue G.I. and DVT prophylaxis Incentive spirometry 10 times every hour while awake Out of bed to chair TID, do not offer meal trays while in the bed Activity as tolerated Apply ice 20 minutes on 20 minutes off as needed (2) Morbid obesity with BMI of 50.0-59.9, adult Status: Chronic Weight loss recommended exercise recommended (3) Cellulitis Status: Acute See above Qualifiers: Site of cellulitis: extremity Site of cellulitis of extremity: lower extremity Laterality: right Qualified Code(s): L03.115 - Cellulitis of right lower limb Subjective Patient reports: no new complaints, still having pain, pain is less, voiding w/o difficulty, flatus, bowel movement, afebrile Narrative: Right leg feels improved. Was originally planned to discharge on 04/15/2019 however secondary to insurance complications he remained in the hospital. Objective Vital Signs - Last 8 Hours Temp Pulse Resp BP Pulse Ox 04/16/19 11:35 98.5 F 77 15 127/83 94 04/16/19 07:24 97.6 F 75 13 142/97 97 Intake and Output 04/15/19 04/16/19 04/16/19 23:59 07:59 15:59 Intake Total 100 / 2320 240 / 240 Output Total 930 / 1980 645 / 655 10 / 655 Balance -830 / 340 -645 / -415 230 / -415 Intake: IV Fluids 100 / 2200 Ancef 2,000 MG In 0.9 % Sodium 100 / 100 Chloride 100 ML @ 200 mls/hr IVPB Q8HR [facility] Rx#:[id number] Oral 240 / 240 Output: Urine 900 / 1950 625 / 625 Wound Drainage Left Thigh Other: Meal Breakfast Percent of Meal Consumed 60% # Bowel Movements 0 - General physical appearance well nourished, no distress, moderate pain, obese - ENT atraumatic, normocephalic - Neck Neck exam: trachea midline - Respiratory normal expansion, normal respiratory effort - Cardiovascular Cardiovascular exam: Present: RRR - Abdomen Abdomen: Present: bowel sounds present, soft, non tender - Incision Incision: Present: open (See assessment and plan for description) - Integumentary no rash - Musculoskeletal normal posture - Psychiatric oriented to time, oriented to person, oriented to place - Labs 04/16/19 03:59 04/16/19 03:59 Diabetes panel 04/16/19 Range/Units 03:59 Sodium 136 (136-145) mEq/L Potassium 3.8 (3.5-5.1) mEq/L Chloride 101 (98-107) mEq/L Carbon Dioxide 27 (23-29) mEq/L BUN 13 (6-20) mg/dL Creatinine 0.64 L (0.70-1.30) mg/dL Glucose 101 (70-105) mg/dL Calcium 9.1 (8.6-10.3) mg/dL Calcium panel 04/16/19 Range/Units 03:59 Calcium 9.1 (8.6-10.3) mg/dL Pituitary panel 04/16/19 Range/Units 03:59 Sodium 136 (136-145) mEq/L Potassium 3.8 (3.5-5.1) mEq/L Chloride 101 (98-107) mEq/L Carbon Dioxide 27 (23-29) mEq/L BUN 13 (6-20) mg/dL Creatinine 0.64 L (0.70-1.30) mg/dL Glucose 101 (70-105) mg/dL Calcium 9.1 (8.6-10.3) mg/dL Adrenal panel 04/16/19 Range/Units 03:59 Sodium 136 (136-145) mEq/L Potassium 3.8 (3.5-5.1) mEq/L Chloride 101 (98-107) mEq/L Carbon Dioxide 27 (23-29) mEq/L BUN 13 (6-20) mg/dL Creatinine 0.64 L (0.70-1.30) mg/dL Glucose 101 (70-105) mg/dL Calcium 9.1 (8.6-10.3) mg/dL Consult Discharge Plan - Plan Instructions: Narcotic Pain Management (GEN), Weight Management (GEN), Obesity (GEN), Negative Pressure Wound Therapy (DC) Additional Instructions: Take Tylenol every 6 hours if needed for pain. If this does not relieve your discomfort, you can take the as needed Oxycodone; however, the Oxycodone should be reserved for severe pain and 1 hour prior to wound vac or dressing changes. Daily Wound Care: remove dressing and packing. Shower with antibacterial soap (if that is more comfortable you can wait until you are in the shower to remove the dressing and packing). Pat dry. Repack with Dakin's soaked kerlix. Cover with a dry dressing. Take your antibiotics as directed. Do not stop them without talking to your provider. You can apply and ice to your leg 20 minutes every hour that you are awake for d iscomfort. Walk around your house or outside several times per day. Follow-up with Dr. Proctor in Wound Care on 04/20/19 at 8:45 am. Referrals: Layo Proctor MD [Non-Partnered Physician] - 04/20/19 8:45 am () Rox Taveras, [employer] [Primary Care Provider] - Prescriptions: Docusate Sodium [Colace] 100 mg PO BID PRN #30 capsule PRN Reason: Contstipation Lidocaine Jelly 11ml [GLYDO 11ml] 2 appl TP 3XW 90 Days #36 jel.pf.david Cephalexin [Keflex] 250 mg PO Q6H 5 Days #20 capsule OxyCODONE Immed Rel [Roxicodone 5 MG] 5 mg PO Q6HR PRN 7 Days #28 tablet PRN Reason: Severe Pain Transparent Dressing [Tegaderm] 1 each TP 3XW 90 Days #36 bandage <Layo Proctor - Last Filed: 04/19/19 07:40> Date of Encounter: 04/19/19 Objective - Labs 04/16/19 03:59 04/16/19 03:59 - Attending Attestation patient seen and examined. i have reviewed all pertinent points to this case. i have discussed the case in detail with the LINE WELDER. i agree with the above assessment and plan.
== END 2019-04-16 14:35 | disposition home health service (06) | DRG 571 ==
LOC: EMEROOARM 14:49 → 3ANU 14:49
PROVIDERS: ADMIT Surgery; ATTEND Surgery